=== PATIENT | female | born 1990 | race African-American/Black ===

== ENCOUNTER 2017-05-21 09:12 | Emergency (ER) | payer OTHER ==
[~2017-05-21] VITALS: Ht 160 cm; Wt 76.0 kg
[~2017-05-21 09:12] MED LIST: MOBIC15 MG PO; PEN-VEE K,VEET500 MG PO
[2017-05-21] MEDS ORDERED: FLEXERIL10 MG PO (11:44)
[2017-05-21 11:58] VITALS: BP 101/49
== END 2017-05-21 12:16 | disposition home or self-care (01) ==
LOC: EME 09:12
DX: S16.1XXA Strain of muscle, fascia and tendon at neck level, initial encounter (principal); M25.511 Pain in right shoulder
CPT/HCPCS: 72040; 99281; 99284; J7512